=== PATIENT | male | born 1935 | race African-American/Black ===

== ENCOUNTER 2020-10-27 14:11 | Emergency (ER) | payer MEDICAID, OTHER ==
[~2020-10-27] VITALS: Ht 180.3 cm; Wt 80.0 kg
[2020-10-27] MEDS ORDERED: SODIUM CHLORIDE 0.9% 1,000 ML IV ONE (15:00)
[2020-10-27] MEDS ORDERED: MECLIZINE 25MG TABLET PO ONE (15:00)
[2020-10-27 15:34] LABS: BASOPHILS % 0.5 % (0.0-2.0); EOSINOPHILS % 0.1 % (0.0-5.0); HEMATOCRIT. 34.7 % (42.0-52.0); HEMOGLOBIN. 11.2 g/dL (14.0-18.0); LYMPHOCYTES % 9.3 % (20.0-50.0); MEAN CORPUSCULAR HEMOGLOBIN 25.8 pg (28.0-32.0); MEAN PLATELET VOLUME 6.7 fl (7.4-10.4); MONOCYTES % 6.1 % (2.0-8.0); PLATELET 304 x1000/uL (130-400); RED BLOOD CELL COUNT 4.34 mill/uL (4.7-6.1); RED CELL DISTRIBUTION WIDTH 16.8 % (11.6-14.6)
[2020-10-27 15:38] LABS: CHLORIDE 99 mEq/L (98-107)
[2020-10-27 20:47] VITALS: BP 105/54
== END 2020-10-27 20:47 | disposition home or self-care (01) ==
LOC: ER 14:11
DX: N28.9 Disorder of kidney and ureter, unspecified (principal); R42 Dizziness and giddiness; I10 Essential (primary) hypertension
CPT/HCPCS: 36415; 70450; 80053; 83880; 84484; 85025; 93005; 96360; 96361; 99285; J8597